=== PATIENT | female | born 1935 | race Caucasian/White ===

== ENCOUNTER → 2016-11-14 16:57 | Outpatient (CLI) | payer MEDICARE, BC ==
[2016-03-01 11:47] VITALS: BMI 22.1
[~2016-11-14 16:57] MED LIST: COZAAR50 MG PO; ELIQUIS5 MG PO; LOSARTAN PO; PRILOSEC PO; TOPROL XL25 MG PO; VITAMIN D250000 UNIT PO; XANAX0.25 MG PO
== END | disposition home or self-care (01) ==
LOC: D.MAMMO 10-27 10:15
DX: Z12.31 Encounter for screening mammogram for malignant neoplasm of breast (principal); M81.0 Age-related osteoporosis without current pathological fracture

== ENCOUNTER 2017-09-29 12:17 | Emergency (ER) | payer MEDICARE, BC ==
[2016-03-01 11:47] VITALS: BMI 22.1
== END 2017-09-29 19:40 | disposition home or self-care (01) ==
LOC: D.ER 12:17
DX: I10 Essential (primary) hypertension (principal); Z85.048 Personal history of other malignant neoplasm of rectum, rectosigmoid junction, and anus; R00.0 Tachycardia, unspecified; I44.7 Left bundle-branch block, unspecified

== ENCOUNTER → 2018-11-19 14:13 | Outpatient (CLI) | payer MEDICARE, BC ==
[2016-03-01 11:47] VITALS: BMI 22.1
== END | disposition home or self-care (01) ==
LOC: D.HCCARDIO 14:13
PROVIDERS: ATTEND Internal Medicine Cardiovascular Disease
DX: I35.1 Nonrheumatic aortic (valve) insufficiency (principal)

== ENCOUNTER → 2020-03-04 10:33 | Outpatient (CLI) | payer MEDICARE, BC ==
[2016-03-01 11:47] VITALS: BMI 22.1
== END | disposition home or self-care (01) ==
LOC: D.HCCECHO 10:30
PROVIDERS: ATTEND Internal Medicine Cardiovascular Disease
DX: I35.1 Nonrheumatic aortic (valve) insufficiency (principal)